=== PATIENT | male | born 1955 | race Caucasian/White ===

== ENCOUNTER → 2019-10-28 19:00 | Outpatient (ROUT) | payer OTHER, SELFPAY ==
[2019-10-28 19:51] LABS: Add Manual Diff / Slide Review NO; Basophils Absolute Auto 100 /uL (0-100); Basophils Percent Auto 0.7 % (0-2); Eosinophils Absolute Auto 0 /uL (0-450); Eosinophils Percent Auto 0.3 % (2-4); Hematocrit 39.3 % (41-53); Hemoglobin 13.7 g/dL (13.5-17.5); Lymphocytes Absolute Auto 1700 /uL (1100-4500); Lymphocytes Percent Auto 18.9 % (25-40); Mean Corpuscular HGB Conc 34.9 % (30-36); Mean Corpuscular Volume 88.7 fL (80-100); Monocytes Absolute Auto 500 /uL (0-900); Monocytes Percent Auto 5.9 % (3-14); Neutrophils Absolute Auto 6800 /uL (1500-7000); Neutrophils Percent Auto 74.2 % (50-75); Platelet Count 236 X10^3/uL (150-400); Red Blood Cell Count 4.43 X10^6/uL (4.5-5.9); White Blood Cell Count 9.1 X10^3/uL (4.5-11.0)
[2019-10-28 19:59] LABS: Aspartate Aminotransferase 41 IU/L (17-59); BUN Creatinine Ratio 19.7 (6-22); Blood Urea Nitrogen 15 mg/dL (9-20); Calcium 10.4 mg/dL (8.4-10.2); Carbon Dioxide 28 mmol/L (22-32); Chloride 106 mmol/L (98-107); Cholesterol 244 mg/dL (140-199); Estimated Glomerular Filt Rate > 60.0 mL/min (>60); Glucose 109 mg/dL (80-110); HDL Cholesterol 42 mg/dL (40-60); HEMOLYSIS < 15 (0-50); LDL Cholesterol Calculated 145 mg/dL (<100); Sodium 142 mmol/L (137-145); Triglycerides 283 mg/dL (35-150)
[2019-10-28 20:23] LABS: Prostate Specific Antigen 0.964 ng/mL (0.10-4.00)
[2019-10-30 16:14] LABS: Hep C Virus Ab w/Reflex Quant NEGATIVE s/c (NEGATIVE)
== END ==
PROVIDERS: PCP Internal Medicine; Visit Provider Internal Medicine
DX: Z00.00 Encounter for general adult medical examination without abnormal findings (principal); I10 Essential (primary) hypertension; E78.2 Mixed hyperlipidemia; D64.9 Anemia, unspecified; Z20.9 Contact with and (suspected) exposure to unspecified communicable disease
CPT/HCPCS: 80048; 80061; 84153; 84450; 85025; 86803

== ENCOUNTER → 2020-02-23 18:53 | Outpatient (ROUT) | payer OTHER, SELFPAY ==
[2020-02-23 20:15] LABS: Aspartate Aminotransferase 35 IU/L (17-59); BUN Creatinine Ratio 22.2 (6-22); Blood Urea Nitrogen 16 mg/dL (9-20); Calcium 9.8 mg/dL (8.4-10.2); Carbon Dioxide 28 mmol/L (22-32); Chloride 106 mmol/L (98-107); Cholesterol 160 mg/dL (140-199); Estimated Glomerular Filt Rate > 60.0 mL/min (>60); Glucose 101 mg/dL (80-110); HDL Cholesterol 42 mg/dL (40-60); HEMOLYSIS < 15 (0-50); LDL Cholesterol Calculated 67 mg/dL (<100); Potassium 3.9 mmol/L (3.4-5.1); Sodium 141 mmol/L (137-145); Triglycerides 254 mg/dL (35-150)
== END ==
PROVIDERS: PCP Internal Medicine; Visit Provider Internal Medicine
DX: E78.2 Mixed hyperlipidemia (principal); I10 Essential (primary) hypertension
CPT/HCPCS: 80048; 80061; 84450

== ENCOUNTER → 2021-10-17 07:26 | Outpatient (CLI) | payer OTHER, SELFPAY ==
[2021-10-17 08:12] LABS: Hematocrit 38.1 % (41-53); Hemoglobin 13.4 g/dL (13.5-17.5); Mean Corpuscular HGB Conc 35.2 % (30-36); Mean Corpuscular Hemoglobin 30.7 PG (26-34); Platelet Count 215 X10^3/uL (150-400); Red Blood Cell Count 4.38 X10^6/uL (4.5-5.9); Red Cell Distribution Width 12.7 % (11.6-14.8); White Blood Cell Count 6.3 X10^3/uL (4.5-11.0)
[2021-10-17 08:35] LABS: Alanine Aminotransferase 45 IU/L (<50); Albumin 4.5 g/dL (3.5-5.0); Albumin Globulin Ratio 1.5 (1.0-2.8); Alkaline Phosphatase 66 U/L (38-126); Aspartate Aminotransferase 46 IU/L (17-59); BUN Creatinine Ratio 13.2 (6-22); Bilirubin Total 0.6 mg/dL (0.2-1.3); Blood Urea Nitrogen 12 mg/dL (9-20); Calcium 9.1 mg/dL (8.4-10.2); Carbon Dioxide 30 mmol/L (22-32); Chloride 105 mmol/L (98-107); Cholesterol 155 mg/dL (140-199); Estimated Glomerular Filt Rate > 60 mL/min (>60); Globulin 3.1 g/dL (1.7-4.1); Glucose 106 mg/dL (80-110); HDL Cholesterol 37 mg/dL (40-60); HEMOLYSIS < 15 (0-50); LDL Cholesterol Calculated 91 mg/dL (<100); Potassium 3.8 mmol/L (3.4-5.1); Sodium 140 mmol/L (137-145); Total Protein 7.6 g/dL (6.3-8.2); Triglycerides 135 mg/dL (35-150)
[2021-10-17 09:03] LABS: Prostate Specific Antigen 0.973 ng/mL (0.10-4.00)
[2021-10-17 09:06] LABS: TSH w/ Reflex to FT4 0.92 uIU/mL (0.47-4.68)
== END ==
PROVIDERS: PCP Internal Medicine; Referring Provider Internal Medicine; Visit Provider Internal Medicine
DX: I10 Essential (primary) hypertension (principal); E78.2 Mixed hyperlipidemia; N40.0 Benign prostatic hyperplasia without lower urinary tract symptoms
CPT/HCPCS: 36415; 80053; 80061; 84153; 84443; 85027

== ENCOUNTER → 2022-08-09 06:42 | Outpatient (CLI) | payer MEDICARE, SELFPAY ==
[2022-08-09 08:30] LABS: Alanine Aminotransferase 28 IU/L (<50); Albumin 4.1 g/dL (3.5-5.0); Albumin Globulin Ratio 1.4 (1.0-2.8); Alkaline Phosphatase 71 U/L (38-126); Aspartate Aminotransferase 31 IU/L (17-59); BUN Creatinine Ratio 18.2 (6-22); Bilirubin Total 0.4 mg/dL (0.2-1.3); Blood Urea Nitrogen 12 mg/dL (9-20); Carbon Dioxide 26 mmol/L (22-32); Chloride 106 mmol/L (98-107); Cholesterol 136 mg/dL (140-199); Estimated Glomerular Filt Rate > 60 mL/min (>60); Globulin 2.9 g/dL (1.7-4.1); Glucose 102 mg/dL (80-110); HDL Cholesterol 33 mg/dL (40-60); HEMOLYSIS < 15 (0-50); LDL Cholesterol Calculated 58 mg/dL (<100); Potassium 3.8 mmol/L (3.4-5.1); Sodium 140 mmol/L (137-145); Triglycerides 226 mg/dL (35-150)
[2022-08-09 08:57] LABS: Prostate Specific Antigen 1.12 ng/mL (0.10-4.00)
== END ==
PROVIDERS: PCP Internal Medicine; Referring Provider Internal Medicine; Visit Provider Internal Medicine
DX: E78.2 Mixed hyperlipidemia (principal); I10 Essential (primary) hypertension
CPT/HCPCS: 36415; 80053; 80061; 84153

== ENCOUNTER → 2023-04-05 16:04 | Outpatient (CLI) | payer MEDICARE, SELFPAY ==
--- NOTE | 2023-04-05 16:06 | DI.RAD.S_ITS ---
PROCEDURE: XR KNEE LT 3V INDICATIONS: left knee pain TECHNIQUE: 3 views of the knee were acquired. COMPARISON: [facility] [place], CR, XR KNEE ARTHRITIC SERIES LT, 10/31/2018, 8:12. FINDINGS: Bones: No acute fracture or dislocation. Sclerotic linear appearance along the medial tibial plateau is stable compared to prior and symmetric compared to the contralateral side as seen on prior dated October 31, 2018, likely a benign growth arrest line. No dislocation. [id number] tricompartmental joint space narrowing and juxta-articular osteophytosis. Subchondral cystic lesion inferior to the tibial spine, stable compared to prior. No suspicious bony lesions. Soft tissues: Small joint effusion. No suspicious soft tissue calcifications. IMPRESSION: 1. No acute osseous abnormality. 2. Subchondral cystic lesion inferior to the tibial spine may represent a geode versus an osteochondral defect, stable compared to prior. Consider MRI for further evaluation. 2. 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 Dictated by: Trevin Caldwell M.D. on 04/05/2023 at 20:54 Approved by: Trevin Caldwell M.D. on 04/05/2023 at 21:03
--- NOTE | 2023-04-05 16:06 | DI.RAD.S_ITS ---
PROCEDURE: XR HIP W PEL IF DONE LT 2V INDICATIONS: left hip pain TECHNIQUE: 2 AP views of the pelvis and one view of the left hip COMPARISON: [facility], CR, XR PELVIS WITH LATERAL HIP RIGHT, 03/28/2022, 8:21. FINDINGS: Bones: No acute fracture or dislocation. Mild left femoroacetabular joint space narrowing with tiny juxta-articular osteophytosis. Pelvic ring appears intact. Right total hip arthroplasty is intact with no perihardware lucency to suggest hardware loosening. Soft tissues: The visualized bowel gas pattern is normal. No suspicious soft tissue calcifications. IMPRESSION: 1. No acute bony abnormality. If there is high clinical suspicion for a radiographically occult fracture, consider CT or MRI for further evaluation. 2. Mild left hip osteoarthritis. Dictated by: Trevin Caldwell M.D. on 04/05/2023 at 20:43 Approved by: Trevin Caldwell M.D. on 04/05/2023 at 20:45
== END ==
PROVIDERS: PCP Internal Medicine; Referring Provider Internal Medicine; Visit Provider Internal Medicine
DX: M16.12 Unilateral primary osteoarthritis, left hip (principal); M17.12 Unilateral primary osteoarthritis, left knee; M25.552 Pain in left hip; M25.562 Pain in left knee
CPT/HCPCS: 73502; 73562